=== PATIENT | male | born 1980 | race African-American/Black ===

== ENCOUNTER → 2019-02-28 | Day surgery (SDC) | payer BC ==
--- NOTE | 2019-02-08 09:48 | HP ---
CC: Dr. Swain * PREOPERATIVE HISTORY AND PHYSICAL: DATE OF ADMISSION/SURGERY: 02/28/19 This patient is scheduled for same-day surgery admission by Dr. Navarrete on 02/28/19. DATE OF PREOPERATIVE HISTORY AND PHYSICAL EXAMINATION: 02/07/19. TTENDING SURGEON: Dr. Miki Navarrete * (dictated by Naida Hebert NP). CHIEF COMPLAINT: Right groin hernia. HISTORY OF PRESENT ILLNESS: The patient is a 38-year-old male recently evaluated by Dr. Navarrete for a right inguinal hernia. The patient reported several months of right groin pain earlier this year after moving into his apartment. 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 He noted a burning sensation radiating from the groin to the right testis. He took ibuprofen with relief. He went to urgent care after a co-worker told him that it might be a hernia. He has noticed a bulge in the right inguinal region. Provoking factors include the above and also standing for more than an hour; palliating factors are pressing on the groin and taking ibuprofen, Aleve, or Tylenol, which he does multiple times daily. He denies any change in bowel habits. He denies nausea or vomiting or dysuria Dr. Navarrete examined the patient and noticed a right inguinal hernia with tenderness on palpation. Dr. Navarrete has discussed the nature of inguinal hernias, the optional methods of surgical treatment, and the patient has opted for laparoscopic right inguinal hernia repair with mesh as a same-day procedure under general anesthesia. Dr. Navarrete described the nature of the surgery, the relevant risks and benefits, and today, I reviewed the expected postoperative care and recovery. The patient has had a chance to ask questions and stated that he understands the information and is satisfied with the answers given to his questions. He will sign surgical consent on the day of surgery. PAST MEDICAL HISTORY: Heartburn, obesity, and smoking. PAST SURGICAL HISTORY: Facial surgery requiring wiring of his jaw. MEDICATIONS: 1. Omeprazole 20 mg p.o. daily in the morning. 2. Ibuprofen, acetaminophen, and Aleve p.r.n. for pain. ALLERGIES: PENICILLIN causes hives. FAMILY HISTORY: Father with a history of hypertension and some type of unspecified cancer. Mother due to unknown causes. No known anesthesia complications, bleeding tendencies, or clotting disorders. SOCIAL HISTORY: He is single. He smokes a pack of cigarettes per day and in the past consumed a lot of beer. Currently, he smokes marijuana. 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 REVIEW OF SYSTEMS: Constitutional: No fevers, chills, excessive fatigue, or unintended weight loss. Endocrine: No diabetes or thyroid disease. Hematologic: No easy bruising or bleeding. No history of blood transfusions. Respiratory: No dyspnea on exertion. No chronic cough. Cardiovascular: No anginal chest pain or palpitations. Gastrointestinal: No nausea, vomiting, diarrhea, chronic constipation, or change in bowel habits. Genitourinary: No dysuria. Musculoskeletal: Normal strength and tone. Integumentary: No chronic rashes, ulcerations, or skin changes. Neurologic: No headache, blurred vision, or areas of focal weakness or numbness. General: No previous anesthesia complications. No history of deep vein thrombosis or pulmonary embolism. PHYSICAL EXAMINATION GENERAL SURVEY: The patient is a 38-year-old male, obese, well developed, in no acute distress. VITAL SIGNS: Height 72 inches, weight 245 pounds, body mass index 33.2. Blood pressure 140/92, pulse 96 and regular, respiratory rate 16, temperature 97.3 tympanic. HEENT: Benign. NECK: Supple. No cervical lymphadenopathy. LUNGS: Breath sounds bilaterally clear and equal. HEART: Regular rate and rhythm. No murmurs or rubs appreciated. ABDOMEN: Active bowel sounds. Soft, nontender, nondistended. No obvious masses, organomegaly, or evidence of umbilical hernia. Inguinal exam done by Dr. Navarrete revealed a right inguinal hernia that is tender on palpation. No hernia in the left inguinal region. BACK: No CVA tenderness. GENITALIA: Exam deferred. RECTAL: Exam deferred. EXTREMITIES: Warm without edema or skin ulceration. NEUROLOGIC: Alert and oriented x3. Steady gait. SKIN: Warm, dry, intact. IMPRESSION: Right inguinal hernia. PLAN: Same-day surgery admission to Dr. Navarrete' service for laparoscopic right inguinal hernia repair with mesh on 02/28/19. BRIGIDA HEBERT, MANAGER PROVIDER RELATIONS [id number]/[facility] #: [id number] ROSA ELENA
[~2019-02-28] MED LIST: Buffered Lidocaine 1% SYRIN* 1 ML/SYRINGE INTRADERM ONE; Bupivacaine 0.25% EPI 200,000* 30 ML SDV ONE; Cisatracurium* 2 MG/ML MDV 5 ML ONE; Clindamycin 900 MG/D5W BAG(*) 900 MG/50 ML BAG IVPB ONE; Dexamethasone IV* 4 MG/ML 1 ML (4 MG) ONE; Famotidine IV* 10 MG/ML 2 ML (20 mg) IV ONE; Famotidine IV* 10 MG/ML 2 ML (20 mg) ONE; Glycopyrrolate IV* 0.2 MG/ML 1 ML VIAL ONE; HYDROmorphone INJ1* 1 MG/ML SYRINGE IV PRN; Ketorolac INJ* 30 MG/ML 1 ML VIAL ONE; Lactated Ringers 1000 ML Bag* 1,000 ML IV SCH; Lidocaine 2% PF * 5 ML VIAL ONE; Midazolam* 1 MG/ML 5 ML VIAL (5 MG) ONE; Naloxone* 0.4 MG/ML 1 ML VIAL IV PRN; Neostigmine Methylsulfate* 1 MG/ML 10 ML VIAL (1 mg/ml) ONE; Ondansetron INJ* 2 MG/ML VIAL IV PRN; Ondansetron INJ* 2 MG/ML VIAL ONE; Propofol* 10 MG/ML 20 ML BTL ONE; fentaNYL* 50 MCG/ML 2 ML VIAL (100 MCG VIAL) IV PRN; fentaNYL* 50 MCG/ML 2 ML VIAL (100 MCG VIAL) ONE
--- NOTE | 2019-02-28 12:16 | OP ---
Operative Report - Blank - Operative Report Date of Operation: 02/28/19 Note: Operative Note Preoperative Dx:Right Inguinal Hernia Postoperative Dx:Right Inguinal Hernia Procedure:Lararoscopic Right Inguinal Hernia Repair With Mesh Anesthesia:GENOVEVA Gann Surgeon:Dr Navarrete [employer] Manager:Luzma BAILEY, Yuriy LAUREANO EBL:scant Specimen: no fluids:1200cc Crystaloid Drains:no Findings:As Above
[2019-02-28 12:26] VITALS: BP 146/97
--- NOTE | 2019-02-28 22:41 | OP ---
DATE OF OPERATION: 02/28/19 - [facility] DATE OF : 76 SURGEON: Miki Navarrete MD PROFESSOR OF EARLY CHILDHOOD EDUCATION: BRENDA Sherman ANESTHESIOLOGIST: Dr. Yuriy Gann. ANESTHESIA: General endotracheal. PRE-OP DIAGNOSIS: Right inguinal hernia. POST-OP DIAGNOSIS: Right inguinal hernia. OPERATIVE PROCEDURE: Laparoscopic preperitoneal repair, right inguinal hernia with mesh. ESTIMATED BLOOD LOSS: Minimal. IV FLUIDS: Crystalloid. SPECIMEN: None. DRAINS: None. COMPLICATIONS: None. COUNTS: Instrument, needle, and sponge count correct. OPERATIVE FINDINGS: The patient had evidence of indirect right inguinal hernia and small femoral hernia on the right side. DESCRIPTION OF PROCEDURE: The patient was brought to the operating room and placed on the table supine. Sequential compression devices were placed on both lower extremities. General anesthesia was administered. Soria catheter was placed. He was positioned and padded appropriately and he received appropriate intravenous antibiotics. After sterile prep and drape, time-out was performed. Local anesthetic was infiltrated in the infraumbilical site and a curvilinear infraumbilical incision was created and the subcutaneous tissues were divided bluntly. Anterior rectus fascia was incised transversely to the right of midline. The underlying musculature was retracted laterally and the preperitoneal balloon dissector was positioned down to the level of the pubic tubercle. This was insufflated under direct visualization and then removed and 12-mm blunt port was placed. Carbon dioxide was insufflated to a pressure of 12 mmHg. Under direct visualization, two 5-mm trocars were placed in the lower midline. Dissection proceeded from the midline laterally, identified and preserving the inferior epigastric vessels and the spermatic cord components. Inspection in the direct space revealed no evidence of hernia. There was a small fatty mass reduced from the femoral space. The peritoneal sac was dissected free from the cord components and inspection revealed dilated inguinal ring on the right side. Repair was then performed with the Bard 3DMax large size mesh patch. This was positioned to cover direct, indirect, and femoral spaces, and secured with single tack at Manolo's ligament. After placing the mesh, the 12-mm port was repositioned into the peritoneal cavity to inspect the repair and the position of the mesh was confirmed and no rents were noted in the peritoneum. Ports were then all removed. Carbon dioxide was released and the skin incisions were closed with 4-0 Monocryl in subcuticular fashion. Steri-Strips were applied. The patient tolerated the procedure well and was extubated. He was transferred to Recovery stable. [id number]/[facility] #: [id number] ROSA ELENA
== END | disposition home or self-care (01) ==
LOC: OR 08:20
PROVIDERS: ATTEND Surgery
DX: K40.90 Unilateral inguinal hernia, without obstruction or gangrene, not specified as recurrent (principal); K41.90 Unilateral femoral hernia, without obstruction or gangrene, not specified as recurrent; Z88.0 Allergy status to penicillin; Z72.0 Tobacco use; K21.9 Gastro-esophageal reflux disease without esophagitis
CPT/HCPCS: C1781; J1100; J1885; J2250; J2405; J2704; J2710; J3010